=== PATIENT | male | born 1930 | race Caucasian/White ===

== ENCOUNTER 2017-09-16 17:06 | Observation (INO) | payer MEDICARE ==
[2017-09-16] MEDS ORDERED: ONDANSETRON HCL IV 4 MG/2 ML VIAL IVP ONE (17:32)
[2017-09-16] MEDS ORDERED: ACETAMINOPHEN 325 MG TAB PO ONE (17:32)
[2017-09-16] MEDS ORDERED: 0.9 % SODIUM CHLORIDE 1,000 ML BAG IV ONE (17:33)
[2017-09-16 17:44] LABS: HEMATOCRIT 43.3 % (42.0-52.0); HEMOGLOBIN 14.4 gm/dl (14.0-18.0); MEAN CELL VOLUME 92.9 fl (81-97); MEAN CORPUSCULAR HEMOGLOBIN 30.9 pg (27-33); MEAN CORPUSCULAR HGB CONC 33.3 g/dl (32-36); MEAN PLATELET VOLUME 9.8 fl (7.4-10.4); PLATELET COUNT 131 K/uL (130-400); RED BLOOD COUNT 4.66 M/uL (4.40-5.70); RED CELL DISTRIBUTION WIDTH 13.8 % (11.5-14.5)
--- NOTE | 2017-09-16 17:48 | Emergency Department Record ---
History of Present Illness - General Chief Complaint: Fever Stated Complaint: VOMITING Time Seen by Provider: 09/16/17 17:29 Source: Patient Mode of Arrival: Wheelchair Limitations: No limitations - History of Present Illness Initial Comments: The patient is here due to a one day hx of first ST, then cough, fever, weakness and vomiting this afternoon. He denies any CP, SOB, back pain or dysuria. The patient did not get a flu shot this year. MD Complaint: Fever, Malaise, Weakness Onset/Timin -: Days(s) Maximum Temperature: 103 F Temperature Source: Oral Associated Symptoms: Cough, Nausea Treatments Prior to Arrival: None - Related Data Home Medications Medication Instructions Recorded Confirmed Last Taken Lisinopril [Zestril] 5 mg PO DAILY 09/16/17 09/16/17 Unknown Allergies Allergy/AdvReac Type Severity Reaction Status Date / Time clopidogrel bisulfate Allergy "CAN'T Verified 03/07/15 20:51 [From Plavix] BREATHE" Travel Screening - Travel/Exposure Within Last 30 Days Have you traveled within the last 30 days?: No Review of Systems Constitutional: Reports: Chills, Fever, Malaise Eyes: Denies: Eye discharge ENT: Reports: Congestion Respiratory: Reports: Cough. Denies: Dyspnea Cardiovascular: Denies: Chest pain, Dyspnea on exertion Endocrine: Reports: Fatigue Gastrointestinal: Reports: Nausea, Vomiting. Denies: Abdominal pain Genitourinary: Denies: Dysuria Musculoskeletal: Denies: Arthralgia Past Medical History - SOCIAL HISTORY Smoking Status: Former smoker Alcohol Use: None Drug Use: None - RESPIRATORY Hx Respiratory Disorders: No - CARDIOVASCULAR Hx Cardio Disorders: Yes Hx Abnormal EKG: Yes Comment:: cardiac stent - NEURO Hx Neuro Disorders: No - GI Hx GI Disorders: No - Hx Genitourinary Disorders: No - ENDOCRINE Hx Endocrine Disorders: No - MUSCULOSKELETAL Hx Musculoskeletal Disorders: No - PSYCH Hx Psych Problems: No - HEMATOLOGY/ONCOLOGY Hx Hematology/Oncology Disorders: No Family Medical History Any Significant Family History?: Yes Family Hx Comment (NOT TO BE USED IN PLACE OF ITEMS BELOW): diabetes Physical Exam - General General Appearance: Alert, Oriented x3, Cooperative, No acute distress - Head Head exam: Atraumatic, Normocephalic, Normal inspection - Eye Eye exam: Normal appearance, PERRL, EOMI - ENT Throat exam: Normal inspection. negative: Tonsillar erythema, Tonsillar exudate - Neck Neck exam: Normal inspection, Full ROM. negative: Tenderness - Respiratory Respiratory exam: Rhonchi (R base.). negative: Normal lung sounds bilaterally, Accessory muscle use, Decreased breath sounds, Prolonged expiratory, Rales, Respiratory distress, Wheezes - Cardiovascular Cardiovascular Exam: Regular rate, Normal rhythm, Normal heart sounds - GI/Abdominal GI/Abdominal exam: Soft, Normal bowel sounds. negative: Tenderness - Extremities Extremities exam: Normal inspection, Full ROM, Normal capillary refill. negative: Tenderness - Neurological Neurological exam: Alert, Normal gait. negative: Abnormal gait, Motor sensory deficit Course Vital Signs 09/16/17 17:13 Temperature 102.3 F H Pulse Rate 69 Respiratory 20 Rate Blood Pressure 133/101 Pulse Ox 90 L - Reevaluation(s) Reevaluation #1: The patient is doing much better at this time. His temp is improved to 100.3 orally and he feels MUCH better. Hemodynamically the patient is very stable. He has been unable to urinate since he has been here so we will have the patient obtain a UA after admission. I did discuss the issues with the patient and and did recommend overnight hospital admission and he did agree. I then did discuss the case with Zeynep (LUZMARIA) and she does accept the admission. 09/16/17 18:32 Medical Decision Making - Data Complexity MDM Data: Labs Ordered and/or Reviewed, X-Ray Ordered and/or Reviewed, EKG Ordered and/or Reviewed - Lab Data Result diagrams: 09/17/17 06:15 09/17/17 06:15 Lab Results 09/16/17 Range/Units 17:35 C-Reactive Protein Cancelled - EKG Data -: EKG Interpreted by Or EKG: No Acute Changes, Unchanged From Previous - Radiology Data Radiology results: Report reviewed (CXR: Bibasilar atelectasis, No acute infiltrate.) Disposition Disposition: Admit Clinical Impression: Pneumonia Qualifiers: Pneumonia type: due to unspecified organism Laterality: unspecified laterality Lung location: unspecified part of lung Qualified Code(s): J18.9 - Pneumonia, unspecified organism Disposition: Still a Patient at [facility] Decision to Admit: Admit from ER Decision to Admit Date: 09/16/17 Decision to Admit Time: 18:34 Accepting Physician: Fernander Time Discussed w/Accepting Physician: 18:34 Condition: (2) Stable Time of Disposition: 18:34 Quality - Quality Measures Quality Measures: N/A - Blood Pressure Screening View Details: Yes Does Patient Have Any of the Following: No Blood Pressure Classification: Pre-Hypertensive BP Reading Systolic Measurement: 124 Diastolic Measurement: 61 Screening for High Blood Pressure: < Pre-Hypertensive BP, F/U Documented > [ G8950] Pre-Hypertensive Follow-up Interventions: Referral to alternative/primary care provider.
[2017-09-16 17:55] LABS: BLOOD UREA NITROGEN 17 mg/dL (8-23); CREATININE 1.2 mg/dL (0.7-1.2); EST GLOMERULAR FILTRATION RATE > 60 mL/min; TOTAL PROTEIN 6.5 g/dL (6.6-8.7)
[2017-09-16 17:57] LABS: GLUCOSE,RANDOM 152 mg/dL (74-109)
[2017-09-16 17:58] LABS: INFLUENZA A NEGATIVE (NEGATIVE); INFLUENZA B NEGATIVE (NEGATIVE)
[2017-09-16 18:00] LABS: ALB/GLOB RATIO 1.5 (1.1-1.8); ALBUMIN 3.9 g/dL (4.0-5.0); ALKALINE PHOSPHATASE 70 U/L (40-129); ALT/SGPT 16 U/L (<41); AST/SGOT 21 U/L (10.0-50.0)
[2017-09-16] MEDS ORDERED: AZITHROMYCIN 500 MG in 0.9 % SODIUM CHLORIDE 250ML 250 ML IVPB ONE (18:16)
[2017-09-16] MEDS ORDERED: CEFTRIAXONE SODIUM 1 GM in 0.9 % SODIUM CHLORIDE 100ML 100 ML IVPB ONE (18:16)
[2017-09-16] MEDS ORDERED: 0.9 % SODIUM CHLORIDE 1000ML 1,000 ML IV PRN (18:55)
[2017-09-16] MEDS ORDERED: ACETAMINOPHEN 500 MG TABLET PO PRN (18:55)
[2017-09-16 21:32] LABS: URINE APPEARANCE CLEAR; URINE BILIRUBIN NEGATIVE (NEGATIVE); URINE BLOOD NEGATIVE (NEGATIVE); URINE COLOR YELLOW; URINE GLUCOSE (UA) NEGATIVE (NEGATIVE); URINE KETONE NEGATIVE (NEGATIVE); URINE LEUKOCYTE ESTERASE NEGATIVE (NEGATIVE); URINE NITRITE NEGATIVE (NEGATIVE); URINE UROBILINOGEN 0.2 E.U./dL (0.20 - 1.00)
[2017-09-16] MEDS: IPRATROPIUM/ALBUTEROL (0.5MG/3MG) NEB INH SCH (21:51)
[2017-09-17] MEDS: CEFTRIAXONE SODIUM 1 GM in 0.9 % SODIUM CHLORIDE 100ML 100 ML IVPB SCH ×2 (05:54→18:53)
[2017-09-17] MEDS: IPRATROPIUM/ALBUTEROL (0.5MG/3MG) NEB INH SCH ×5 (06:00→21:30)
[2017-09-17 06:29] LABS: BASO % 0.5 % (0-6); EOS % 0.7 % (0-6); GRAN % 55.3 % (47-80); HEMATOCRIT 39.1 % (42.0-52.0); HEMOGLOBIN 12.6 gm/dl (14.0-18.0); LYMPH % 32.7 % (16-45); MEAN CELL VOLUME 94.2 fl (81-97); MEAN CORPUSCULAR HGB CONC 32.2 g/dl (32-36); MEAN PLATELET VOLUME 9.2 fl (7.4-10.4); MONO % 10.8 % (0-9); PLATELET COUNT 109 K/uL (130-400); RED BLOOD COUNT 4.15 M/uL (4.40-5.70); WHITE BLOOD COUNT W/O DIFF 4.3 K/uL (4.2-12.2)
[2017-09-17 06:31] LABS: MEAN CORPUSCULAR HEMOGLOBIN 30.3 pg (27-33)
[2017-09-17 06:42] LABS: ALB/GLOB RATIO 1.3 (1.1-1.8); ALBUMIN 3.1 g/dL (4.0-5.0); ALKALINE PHOSPHATASE 55 U/L (40-129); ALT/SGPT 13 U/L (<41); AST/SGOT 22 U/L (10.0-50.0); BLOOD UREA NITROGEN 18 mg/dL (8-23); CREATININE 1.2 mg/dL (0.7-1.2); EST GLOMERULAR FILTRATION RATE > 60 mL/min; GLUCOSE,RANDOM 99 mg/dL (74-109); TOTAL PROTEIN 5.5 g/dL (6.6-8.7)
--- NOTE | 2017-09-17 08:52 | History & Physical ---
History of Present Illness - Date of Service Date of Service for History & Physical: 09/17/17 - History of Present Illness Admitting Diagnosis: 1. Acute Pneumonia History of Present Illness: 87yo male with CC of fever and cough. He has history of pacemaker, htn and high cholesterol. The patient is here due to a one day hx of first ST, then cough, fever, weakness and one episode of emesis this afternoon. He was not having any CP, SOB , back pain or dysuria. While in the ED, patient had initial temp of 102.3 with room air of 90%. His WBc count was within normal his CRP was elevated at 4.3. Rapid flu negative. CXR showed bibasilar discoid atelectasis. EKG was unchanged from previous dwn in 2016. Blood cultures were obtained. Patient was started on IV rocphin/ azithro for suspected early pneumonia. 09/17/17- patient states he is improved but not back to baseline. He continues to report general fatigue, poor appetite, intermittent cough. The cough is sometimes productive of small amounts of thin mucus. He denies any nasal congestion, sinus pain, sore throat. No known sick contacts. He had one episode of vomiting but denies any further nausea and no diarrhea. He denies feeling short of breath. Travel Screening - Travel/Exposure Within Last 30 Days Have you traveled within the last 30 days?: No - Travel/Exposure Within Last Year Have you traveled outside the [place] in the last year?: No - Additonal Travel Details Have you been exposed to anyone with a communicable illness?: No - Travel Symptoms Symptom Screening: Fever (Subjective) Review of Systems Constitutional: Reports: Chills, Fever, Malaise Eyes: Denies: Eye discharge ENT: Reports: Congestion (chest) Respiratory: Reports: Cough. Denies: Dyspnea Cardiovascular: Denies: Chest pain, Dyspnea on exertion Endocrine: Reports: Fatigue Gastrointestinal: Reports: Nausea, Vomiting. Denies: Abdominal pain Genitourinary: Denies: Dysuria Musculoskeletal: Denies: Arthralgia Past Medical History - SOCIAL HISTORY Smoking Status: Former smoker Alcohol Use: None Drug Use: None - RESPIRATORY Hx Respiratory Disorders: No - CARDIOVASCULAR Hx Cardio Disorders: Yes Hx Abnormal EKG: Yes Comment:: cardiac stent - NEURO Hx Neuro Disorders: No - GI Hx GI Disorders: No - Hx Genitourinary Disorders: No - ENDOCRINE Hx Endocrine Disorders: No - MUSCULOSKELETAL Hx Musculoskeletal Disorders: No - PSYCH Hx Psych Problems: No - HEMATOLOGY/ONCOLOGY Hx Hematology/Oncology Disorders: No Family Medical History Any Significant Family History?: Yes Family Hx Comment (NOT TO BE USED IN PLACE OF ITEMS BELOW): diabetes H&P Meds/Allergies - Allergies Allergies: Allergies Allergy/AdvReac Type Severity Reaction Status Date / Time clopidogrel bisulfate Allergy "CAN'T Verified 03/07/15 20:51 [From Plavix] BREATHE" - Home Medications Home Medications Medication Instructions Recorded Confirmed Last Taken Lisinopril [Zestril] 5 mg PO DAILY 09/16/17 09/16/17 Unknown - Active Medications Active Medications: Current Medications Acetaminophen (Tylenol 500mg Tab) 650 mg PO Q6H PRN PRN Reason: PAIN/TEMP Albuterol/Ipratropium (Duoneb) 3 ml INH RESP.Q4H.[facility] Last Admin: 09/17/17 06:00 Dose: 3 ml Atorvastatin Calcium (Lipitor) 40 mg PO DAILY [facility] Sodium Chloride () 1,000 mls @ 100 mls/hr IV .Q10H PRN PRN Reason: LARGE VOLUME IV Azithromycin 500 mg/ Sodium (Chloride) 250 mls @ 250 mls/hr IVPB Q24H [facility] Stop: 09/22/17 19:01 Ceftriaxone Sodium 1 gm/ (Sodium Chloride) 100 mls @ 100 mls/hr IVPB Q12H [facility] Stop: 09/22/17 06:01 Last Infusion: 09/17/17 06:51 Dose: Infused Lisinopril (Zestril) 5 mg PO DAILY [facility] Non-Formulary Medication (Nebivolol Hcl [Bystolic]) 5 mg PO DAILY [facility] Physical Exam - Vital Signs Vital Signs: Vital Signs - Last 24 Hrs Temp Pulse Pulse Resp BP BP Pulse Ox 09/17/17 07:51 98.9 F 69 18 143/70 95 09/17/17 06:27 99.4 F 09/17/17 06:00 68 16 96 09/16/17 21:51 63 20 94 L 09/16/17 21:00 16 09/16/17 19:08 100.0 F H 69 18 124/61 93 L 09/16/17 19:02 69 18 09/16/17 18:58 98.2 F 69 18 127/61 96 - General General Appearance: Alert, Oriented x3, Cooperative, No acute distress Limitations: No limitations - Head Head exam: Atraumatic, Normocephalic, Normal inspection - Eye Eye exam: Normal appearance, PERRL, EOMI - ENT ENT exam: Normal exam, Mucous membranes moist, Normal external ear exam, Normal orophraynx, TM's normal bilaterally Throat exam: Normal inspection. negative: Tonsillar erythema, Tonsillar exudate - Neck Neck exam: Normal inspection, Full ROM. negative: Tenderness - Respiratory Respiratory exam: Rhonchi (R base.). negative: Normal lung sounds bilaterally, Accessory muscle use, Decreased breath sounds, Prolonged expiratory, Rales, Respiratory distress, Wheezes - Cardiovascular Cardiovascular Exam: Regular rate, Normal rhythm, Normal heart sounds - GI/Abdominal GI/Abdominal exam: Soft, Normal bowel sounds. negative: Tenderness - Extremities Extremities exam: Normal inspection, Full ROM, Normal capillary refill. negative: Tenderness - Neurological Neurological exam: Alert, Normal gait. negative: Abnormal gait, Motor sensory deficit Results - Labs Result Diagrams: 09/17/17 06:15 09/17/17 06:15 Labs Last 24 Hours: Laboratory Results - last 24 hr 09/17/17 09/17/17 06:15 06:15 WBC 4.3 RBC 4.15 L Hgb 12.6 L Hct 39.1 L MCV 94.2 MCH 30.3 MCHC 32.2 RDW 14.0 Plt Count 109 L MPV 9.2 Gran % 55.3 Lymphocytes % 32.7 Monocytes % 10.8 H Eosinophils % 0.7 Basophils % 0.5 Sodium 140 Potassium 4.6 H Chloride 104 Carbon Dioxide 29.0 Anion Gap 7.0 BUN 18 Creatinine 1.2 Estimated GFR > 60 Random Glucose 99 Calcium 8.0 L Total Bilirubin 0.60 AST 22 ALT 13 Alkaline Phosphatase 55 Total Protein 5.5 L Albumin 3.1 L Globulin 2.4 Albumin/Globulin Ratio 1.3 - Imaging and Cardiology Chest x-ray Status: Report reviewed (bibasilar discoid atelectasis) VTE H&P Assessment - Risk for VTE Risk for VTE: Yes Risk Level: High Risk Assessment Date: 09/18/17 Risk Assessment Time: 00:02 VTE Orders Placed or Will Be Placed: Yes Plan - Detailed Diagnosis and Plan (1) Pneumonia Current Visit: Yes Status: Acute Qualifiers: Pneumonia type: due to unspecified organism Laterality: unspecified laterality Lung location: unspecified part of lung Qualified Code(s): J18.9 - Pneumonia, unspecified organism Base Code: J18.9 - PNEUMONIA, UNSPECIFIED ORGANISM Comment: 09/17/17- Suspected early pneumonia improving clinically following initiation of rocphin and azithromycin. Has been afebrile since starting abx. WBC count remains normal , CRP did go up to 6 today. O2 sat has been 93% on room air. CXR showed bibasilar ateletasis. Influenza was negative. Blood cultures pending. No MDR RF. -continue IV rocephin and azithromycin -duoneb q4H prn sob -vitals q8H -repeat labs qam (2) Full code status Current Visit: Yes Status: Acute Base Code: Z78.9 - OTHER SPECIFIED HEALTH STATUS Comment: 09/17/17- patent is full code status (3) DVT prophylaxis Current Visit: Yes Status: Acute Base Code: [id number] - Comment: 09/17/17- lovenox 40mg sq daily for prophylaxis
[2017-09-17] MEDS: LISINOPRIL 5 MG TABLET PO SCH (09:29)
[2017-09-17] MEDS: ATORVASTATIN 20 MG TABLET PO SCH (09:30)
[2017-09-17] MEDS ORDERED: NEBIVOLOL HCL 5 MG PO SCH (10:00)
--- NOTE | 2017-09-17 17:53 | RADIOLOGY REPORT ---
EXAM: CHEST 2 VIEWS HISTORY: COUGH, FEVER. TECHNIQUE: PA and lateral views. COMPARISON: No prior chest x-ray. FINDINGS: Post-op sternotomy. Pacemaker in place. Heart size is normal. Calcification and mild torsion of the aorta. Minor bibasilar linear fibrosis or discoid atelectasis. No definite acute alveolar infiltrate seen. Mild thoracic curve to the right with some hypertrophic spurring in the spine. IMPRESSION: 1. POST-OP STERNOTOMY AND PACEMAKER IN PLACE. 2. MINOR BIBASILAR LINEAR FIBROSIS OR DISCOID ATELECTASIS BUT NO ACUTE ALVEOLAR INFILTRATE IDENTIFIED. JOB NUMBER: [id number] [facility]
[2017-09-17] MEDS ORDERED: AZITHROMYCIN 500 MG in 0.9 % SODIUM CHLORIDE 250ML 250 ML IVPB SCH (19:00)
[2017-09-18] MEDS: IPRATROPIUM/ALBUTEROL (0.5MG/3MG) NEB INH SCH ×2 (05:00→09:55)
[2017-09-18] MEDS: CEFTRIAXONE SODIUM 1 GM in 0.9 % SODIUM CHLORIDE 100ML 100 ML IVPB SCH (05:00)
[2017-09-18 06:51] LABS: BASO % 0.5 % (0-6); EOS % 5.1 % (0-6); HEMATOCRIT 40.6 % (42.0-52.0); HEMOGLOBIN 13.3 gm/dl (14.0-18.0); LYMPH % 34.1 % (16-45); MEAN CELL VOLUME 94.4 fl (81-97); MEAN CORPUSCULAR HEMOGLOBIN 30.9 pg (27-33); MEAN CORPUSCULAR HGB CONC 32.8 g/dl (32-36); MEAN PLATELET VOLUME 9.7 fl (7.4-10.4); MONO % 8.3 % (0-9); PLATELET COUNT 115 K/uL (130-400); RED CELL DISTRIBUTION WIDTH 13.8 % (11.5-14.5); WHITE BLOOD COUNT W/O DIFF 3.7 K/uL (4.2-12.2)
[2017-09-18 07:07] LABS: BLOOD UREA NITROGEN 16 mg/dL (8-23); C-REACTIVE PROTEIN 3.77 mg/dL (<0.5); EST GLOMERULAR FILTRATION RATE > 60 mL/min; GLUCOSE,RANDOM 86 mg/dL (74-109)
--- NOTE | 2017-09-18 07:28 | Discharge Summary ---
Providers Discharge Summary Date: 09/18/17 Date of admission: 09/16/17 18:45 Expected Date of Discharge: 09/18/17 Attending physician: FANY HANNA Primary care physician: FERN SOMMER D.O. Physical Exam - Vital Signs Vital Signs: Vital Signs - Last 24 Hrs Temp Pulse Pulse Resp BP Pulse Ox 09/17/17 22:23 99.5 F 69 16 160/71 92 L 09/17/17 21:30 68 92 L 09/17/17 21:00 16 09/17/17 16:00 98.4 F 63 18 144/68 93 L 09/17/17 13:35 93 L 09/17/17 09:28 65 15 91 L 09/17/17 07:51 98.9 F 69 18 143/70 95 - General General Appearance: Alert, Oriented x3, Cooperative, No acute distress Limitations: No limitations - Head Head exam: Atraumatic, Normocephalic, Normal inspection - Eye Eye exam: Normal appearance, PERRL, EOMI - ENT ENT exam: Normal exam, Mucous membranes moist, Normal external ear exam, Normal orophraynx, TM's normal bilaterally Throat exam: Normal inspection. negative: Tonsillar erythema, Tonsillar exudate - Neck Neck exam: Normal inspection, Full ROM. negative: Tenderness - Respiratory Respiratory exam: Rhonchi (few bilateral bases). negative: Normal lung sounds bilaterally, Accessory muscle use, Decreased breath sounds, Prolonged expiratory , Rales, Respiratory distress, Wheezes - Cardiovascular Cardiovascular Exam: Regular rate, Normal rhythm, Normal heart sounds - GI/Abdominal GI/Abdominal exam: Soft, Normal bowel sounds. negative: Tenderness - Extremities Extremities exam: Normal inspection, Full ROM, Normal capillary refill. negative: Tenderness - Neurological Neurological exam: Alert, Normal gait. negative: Abnormal gait, Motor sensory deficit Hospitalization - Hospitalization Admission Diagnosis: 1. Acute Pneumonia - Problem List/Discharge Diagnosis (1) Pneumonia Current Visit: Yes Status: Acute Discharge Diagnosis: Pneumonia type: due to unspecified organism Laterality: unspecified laterality Lung location: unspecified part of lung Qualified Code(s): J18.9 - Pneumonia, unspecified organism Base Code: J18.9 - PNEUMONIA, UNSPECIFIED ORGANISM Comment: 09/18/17- Suspected early pneumonia improving clinically following initiation of rocphin and azithromycin. Has been afebrile since starting abx. WBC count remains normal , CRP trending down to 3.2. O2 sat has been 93% on room air. CXR showed bibasilar ateletasis. Rhonchi in bilateral bases. Influenza was negative. Blood cultures prelim showed no growth. No MDR RF. -plan to discharge home today. -transition to azithromycin 250mg po daily for 3 more days and cefdinir 300mg po bid for 8 more days -albuterol inhaler 2 puffs q4H prn sob/wheezing -mucinex 1200mg po bid prn chest congestion -follow up [facility] Dr. Sommer. nursing will schedule prior to discharge (2) Full code status Current Visit: Yes Status: Acute Base Code: Z78.9 - OTHER SPECIFIED HEALTH STATUS Comment: 09/18/17- patent is full code status (3) DVT prophylaxis Current Visit: Yes Status: Acute Base Code: [id number] - Comment: 09/18/17- lovenox 40mg sq daily for prophylaxis - Hospitalization Course Disposition: Home, Self-Care Hospital Course: 87yo male with CC of fever and cough. He has history of pacemaker, htn and high cholesterol. The patient is here due to a one day hx of first ST, then cough, fever, weakness and one episode of emesis this afternoon. He was not having any CP, SOB , back pain or dysuria. While in the ED, patient had initial temp of 102.3 with room air of 90%. His WBc count was within normal his CRP was elevated at 4.3. Rapid flu negative. CXR showed bibasilar discoid atelectasis. EKG was unchanged from previous dwn in 2016. Blood cultures were obtained. Patient was started on IV rocphin/ azithro for suspected early pneumonia. 09/17/17- patient states he is improved but not back to baseline. He continues to report general fatigue, poor appetite, intermittent cough. The cough is sometimes productive of small amounts of thin mucus. He denies any nasal congestion, sinus pain, sore throat. No known sick contacts. He had one episode of vomiting but denies any further nausea and no diarrhea. He denies feeling short of breath. 09/18/17- Patient states he didn't sleep well last night. The hospital bed was just too uncomfortable. Otherwise, he is doing well. he feels like his shortness of breath has resolved. He denies cough, chest congestion, chest pain , lower extremity swelling, body aches, headache. He has not had fever in >24H. He is feeling ready to go home. His CRP is trending downward and his satting 93 % on room air. Abnormal Labs: Abnormal Lab Results 09/17/17 09/17/17 09/17/17 Range/Units 06:15 06:15 Unknown WBC (4.2-12.2) K/uL RBC 4.15 L (4.40-5.70) M/uL Hgb 12.6 L (14.0-18.0) gm/dl Hct 39.1 L (42.0-52.0) % Plt Count 109 L (130-400) K/uL Monocytes % 10.8 H (0-9) % Potassium 4.6 H (3.4-4.5) mmol/L Calcium 8.0 L (8.8-10.2) mg/dL C-Reactive Protein 6.22 H (<0.5) mg/dL Total Protein 5.5 L (6.6-8.7) g/dL Albumin 3.1 L (4.0-5.0) g/dL 09/18/17 Range/Units 06:20 WBC 3.7 L (4.2-12.2) K/uL RBC 4.30 L (4.40-5.70) M/uL Hgb 13.3 L (14.0-18.0) gm/dl Hct 40.6 L (42.0-52.0) % Plt Count 115 L (130-400) K/uL Monocytes % (0-9) % Potassium (3.4-4.5) mmol/L Calcium (8.8-10.2) mg/dL C-Reactive Protein (<0.5) mg/dL Total Protein (6.6-8.7) g/dL Albumin (4.0-5.0) g/dL Condition at Discharge: (2) Stable Discharge Medications - Discharge Medications Prescriptions: Inhaler, Assist Devices [Space Chamber Plus] 1 each MC Q4HR #1 spacer Albuterol Sulfate [Proair Hfa] 1 - 2 puff IH .EVERY 4-6 HOURS PRN #1 inhaler PRN Reason: Difficulty In Breathing Azithromycin 250 mg PO DAILY #3 tablet Cefdinir 300 mg PO Q12H #17 capsule Home Medications: Ambulatory Orders Nebivolol HCl [Bystolic] 5 mg PO DAILY 03/07/15 [Last Taken Unknown] Rosuvastatin Calcium [Crestor] 10 mg PO DAILY 03/07/15 [Last Taken Unknown] Lisinopril [Zestril] 5 mg PO DAILY 09/16/17 [Last Taken Unknown] Albuterol Sulfate [Proair Hfa] 1 - 2 puff IH .EVERY 4-6 HOURS PRN #1 inhaler [Last Taken Unknown] Azithromycin 250 mg PO DAILY #3 tablet 09/18/17 [Last Taken Unknown] Cefdinir 300 mg PO Q12H #17 capsule 09/18/17 [Last Taken Unknown] Inhaler, Assist Devices [Space Chamber Plus] 1 each MC Q4HR #1 spacer 09/18/17 [ Last Taken Unknown] Discharge Plan - Discharge Instructions Activity at Discharge: Resume Usual Activities As Tolerated Diet at Discharge: Regular Diet Additional Instructions: Please follow up with Dr. Sommer September 27 at 2:00pm Continue cefdinir 300mg by mouth twice daily. Your next dose is due this evening Continue azithromycin 250mg by mouth once daily. Your next dose is due this evening May use the albuterol inhaler 2 puffs every 4-6 hours as needed for shortness of breath and/or wheezing. Spacer sent to pharmacy as well. Please call with any questions or concerns Return to ED for any new or worsening symptoms including return of fever, increasing shortness of breath or fatigue. Quality Measures - Quality Measures Quality Measures: Advance Directives, Documentation of Current Medications in Medical Record, Elder Maltreatment Screen and Follow-Up Plan, Screening for High Blood Pressure and F/U Documented - Current Medications Quality Measure: Measure #130: Documentation of Current Medications Documentation of Current Medications: <Current Medications Documented/Reviewed> [G8427] - Blood Pressure Screening Quality Measure: Screening for High Blood Pressure and Follow-Up Documented Does Patient Have Any of the Following: Active Dx of HTN Blood Pressure Classification: Pre-Hypertensive BP Reading Systolic Measurement: 124 Diastolic Measurement: 61 Screening for High Blood Pressure: Patient Exclusion, Hx of HTN [G9744] - Advance Directives Quality Measure: Measure #47: Care Plan Advance Directives Established: No Advance Directives Information Provided To Patient: No Advance Directives on File: No Living Will: Yes Power of Mail Officer: Yes Advance Care Planning: <Care Plan/Decision Maker Documented; Discussed & Documented> [[id number]] - Elder Abuse Suspicion Index Screening: Elder Abuse Suspicion Index Screening Rely on people for bathing, dressing, shopping, banking, etc: No Prevented from getting food, clothes, medication, etc: No Made to feel shamed or threatened by someone: No Forced to sign papers or use money against will: No Feel afraid, touched in ways not wanted or hurt physically: No Poor eye contact, withdrawn, malnourished, cuts or bruises: No Screening Result: Negative result EASI Reference Information: Susan DELEON, Shahla C, Iggy D, Mirna Triana.Development and validation of a tool to assist physicians identification of elder abuse: The Elder Abuse Suspicion Index (EASI ). Journal of Elder Abuse and Neglect, 2008; 20 (3): 276-300. - Elder Maltreatment Screen Quality Measures: Elder Maltreatment Screen and Follow-Up Plan Elder Maltreatment Screen: <Negative, No Follow-Up Plan Required> [G8752]
[2017-09-18] MEDS ORDERED: ACETAMINOPHEN 325 MG TAB PO PRN (08:45)
[2017-09-18] MEDS: ATORVASTATIN 20 MG TABLET PO SCH (09:53)
[2017-09-18] MEDS: LISINOPRIL 5 MG TABLET PO SCH (09:53)
[2017-09-18] MEDS ORDERED: ENOXAPARIN 40 MG/0.4 ML SYR SQ SCH (10:00)
== END 2017-09-18 12:23 | disposition home or self-care (01) ==
LOC: ER 17:06 → MEDSURG 18:45
PROVIDERS: ADMIT Internal Medicine; ATTEND Internal Medicine
DX: J18.9 Pneumonia, unspecified organism (principal); I25.10 Atherosclerotic heart disease of native coronary artery without angina pectoris; E78.00 Pure hypercholesterolemia, unspecified; I10 Essential (primary) hypertension; Z95.2 Presence of prosthetic heart valve; R11.10 Vomiting, unspecified; Z87.891 Personal history of nicotine dependence
CPT/HCPCS: 85025 ×2; 86140 ×3; 80048; 80053 ×2; 81003; 87400; 85027; 71046; 94640 ×2; 94761; 94760; 93005; 93010; G0378 ×3; J2405; 96365; 96368; 96374; 99217; 99220; 99285; J0456; J7030; J7050